=== PATIENT | female | born 1960 | race Caucasian/White ===

== ENCOUNTER 2025-02-01 14:27 | Emergency (ER) | payer SELFPAY ==
[2025-02-01 14:34] VITALS: BP 148/94; PULSE 82; TEMP 36.8; O2SAT 98; BMI 35.2
--- NOTE | 2025-02-01 14:57 | PC.NURSE ---
PT CLEARLY BELIEVES SHE IS 23 WEEKS . STATES I HAD A PROCEDURE AND I AM NOW . Pt was unable to tell this RN where this procedure was done at, or who it was done by. Pt states I was asleep the whole time during the procedure bc my said it would be better that I sleep . Will not confirm that she's been anywhere else to be seen. once again stating she's asleep at every appointment.
--- NOTE | 2025-02-01 15:08 | ED.GENADUL1 ---
HPI HPI - General Adult General Chief complaint: Upper Respiratory Infection Stated complaint: cough - states she is Time Seen by Provider: 02/01/25 14:50 Source: patient Mode of arrival: walk-in Limitations: no limitations History of Present Illness HPI narrative: 64-year-old female presented to the emergency department for a cough. She states she has had it for a few days or perhaps a week. It is nonproductive and she thinks it is allergies. She does not believe she has had a fever. She reports to me that she is 23-1/2 weeks with 6 babies. Related Data Allergies Allergy/AdvReac Type Severity Reaction Status Date / Time Penicillins Allergy Intermediate Hives Verified 02/01/25 14:39 meperidine (From Demerol) AdvReac Mild itching Verified 02/01/25 14:39 Review of Systems ROS Narrative A ten point review of systems is negative except as noted above. PFSH PFSH Social History Little interest or pleasure in doing things: not at all Feeling down, depressed, or hopeless: not at all Exam Narrative Exam Narrative: Nurses note and vital signs reviewed General:The patient appears well and in no apparent distress.Patient is resting comfortably on cart. Skin:Warm, dry, no pallor noted.There is no rash noted. Head:Normocephalic, atraumatic Eye: Normal conjunctiva, no drainage Ears, Nose, Mouth, and Throat: oral mucosa is moist. Nares patent. Cardiovascular:Regular Rate and Rhythm Respiratory:Patient is in no distress, no accessory muscle use, lungs are clear to auscultation, no wheezing, rales or rhonchi Back:non-tender, no CVA tenderness bilaterally to percussion. GI:Normal bowel sounds, no tenderness to palpation, no masses appreciated.No rebound, guarding, or rigidity noted. No distention. Musculoskeletal: The patient has no evidence of calf tenderness, no pitting edema, symmetrical pulses noted bilaterally Neurological:A&O x4, normal speech; upper and lower extremity strength 5 out of 5 and symmetric Psychiatric:Cooperative Constitutional Vital Signs, click to edit/add: Last Vital Signs Temp 98.3 F 02/01/25 14:34 Pulse 82 02/01/25 14:34 Resp 18 02/01/25 14:34 BP 148/94 H 02/01/25 14:34 Pulse Ox 98 02/01/25 14:34 O2 Del Method Room Air 02/01/25 14:34 Course Vital Signs Vital signs: Vital Signs Temperature 98.3 F 02/01/25 14:34 Pulse Rate 82 02/01/25 14:34 Respiratory Rate 18 02/01/25 14:34 Blood Pressure 148/94 H 02/01/25 14:34 Pulse Oximetry 98 02/01/25 14:34 Oxygen Delivery Method Room Air 02/01/25 14:34 Temperature 98.3 F 02/01/25 14:34 Pulse Rate 82 02/01/25 14:34 Respiratory Rate 18 02/01/25 14:34 Blood Pressure 148/94 H 02/01/25 14:34 Pulse Oximetry 98 02/01/25 14:34 Oxygen Delivery Method Room Air 02/01/25 14:34 Medical Decision Making MDM Narrative Medical decision making narrative: The plan was to work her up for the cough and also psychiatric issues. After I left the room with the initial interview she walked out without notifying staff. She is not suicidal. Differential Diagnosis Differential Diagnosis: Pneumonia, allergies, COVID, influenza, delusions Discharge Plan Discharge Stand Alone Forms: Portal Instructions Chief Complaint: Upper Respiratory Infection Clinical Impression: Cough Patient Disposition: Left Against Medical Advice Time of Disposition Decision: 15:07 Condition: Undetermined Mode of Transportation: Private Vehicle Print Language: Turkish
--- NOTE | 2025-02-01 15:25 | PC.NURSE ---
1505 - pt walked out before any tests could be done. informed dr waddell. per registration, pt stated before she left it was time to go under at her apt
== END 2025-02-01 15:05 | disposition left against medical advice (07) ==
LOC: ER 02-02 07:16
PROVIDERS: Emergency Provider Emergency Medicine
DX: R05.9 Cough, unspecified (principal); Z53.29 Procedure and treatment not carried out because of patient's decision for other reasons
CPT/HCPCS: 80048; 80179; 80307; 80320; 80329; 84703; 87804; 87811; 99281